=== PATIENT | female | born 1945 | race Caucasian/White ===

== ENCOUNTER 2021-02-10 23:53 | Emergency (ER) | payer MEDICARE, SELFPAY ==
[2021-02-10 23:56] VITALS: BP 170/77; PULSE 74; RESP 16; TEMP 36.7; O2SAT 97; BMI 32.4
--- NOTE | 2021-02-11 00:15 | XR_ITS ---
PROCEDURE INFORMATION: Exam: XR Pelvis Exam date and time: 02/11/2021 12:15 AM Age: 75 years old Clinical indication: Injury or trauma; Fall; Blunt trauma (contusions or hematomas); Bilateral; Pelvic region TECHNIQUE: Imaging protocol: XR pelvis. Views: 1 or 2 view. COMPARISON: No relevant prior studies available. FINDINGS: Bones/joints: Osteopenia. No acute displaced fracture. Minimal degenerative spurring of the bilateral hips. Mild bilateral SI joint osteoarthrosis. Partially imaged lower lumbar spondylosis. Soft tissues: Unremarkable. IMPRESSION: No acute displaced fracture.
--- NOTE | 2021-02-11 00:15 | XR_ITS ---
PROCEDURE INFORMATION: Exam: XR Left Shoulder Exam date and time: 02/11/2021 12:15 AM Age: 75 years old Clinical indication: Injury or trauma; Blunt trauma (contusions or hematomas); Patient HX: Left shoulder pain after fall TECHNIQUE: Imaging protocol: XR Left shoulder. Views: 2 or more views. COMPARISON: No relevant prior studies available. FINDINGS: Bones/joints: No acute fracture. No dislocation. Moderate AC joint osteoarthrosis. Mild glenohumeral joint degenerative change. Soft tissues: Normal. IMPRESSION: No acute fracture or dislocation.
--- NOTE | 2021-02-11 00:15 | CT_ITS ---
PROCEDURE INFORMATION: Exam: CT Head Without Contrast Exam date and time: 02/11/2021 12:15 AM Age: 75 years old Clinical indication: Injury or trauma; Fall; Blunt trauma (contusions or hematomas); Consciousness not specified; Patient HX: Fell and hit head, unknown loc TECHNIQUE: Imaging protocol: Computed tomography of the head without contrast. Radiation optimization: All CT scans at this facility use at least one of these dose optimization techniques: automated exposure control; mA and/or kV adjustment per patient size (includes targeted exams where dose is matched to clinical indication); or iterative reconstruction. COMPARISON: No relevant prior studies available. FINDINGS: Brain: Generalized brain volume loss. Urzg-xn-[id number] patchy periventricular and subcortical white matter low attenuation is nonspecific, but most likely related to chronic small vessel ischemia. No acute-appearing loss of mcgraw-white differentiation or CT evidence of large territorial acute ischemia. No intraparenchymal hematoma. No mass effect or midline shift. Extra-axial space: Unremarkable. No fluid collection or mass. Cerebral ventricles: Within expected limits for age. No ventricular outflow obstruction. Paranasal sinuses: Mild nonaggressive mucosal thickening of the ethmoid sinuses. Mastoid air cells: Visualized mastoid air cells are well aerated. Vasculature: The scattered cerebrovascular calcifications. Bones/joints: No depressed or calvarial fracture. Soft tissues: Unremarkable. IMPRESSION: 1. No acute intracranial abnormality. 2. Global senescent change. 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
--- NOTE | 2021-02-11 00:15 | CT_ITS ---
PROCEDURE INFORMATION: Exam: CT Cervical Spine Without Contrast Exam date and time: 02/11/2021 12:15 AM Age: 75 years old Clinical indication: Injury or trauma; Fall; Blunt trauma TECHNIQUE: Imaging protocol: Computed tomography images of the cervical spine without contrast. Radiation optimization: All CT scans at this facility use at least one of these dose optimization techniques: automated exposure control; mA and/or kV adjustment per patient size (includes targeted exams where dose is matched to clinical indication); or iterative reconstruction. COMPARISON: CR XR CHEST 2V 02/11/2021 12:23 AM FINDINGS: Bones/joints: Nonspecific straightening of the normal cervical lordosis. There is minimal grade 1 anterolisthesis of C3 on C4 and T1 on T2, favored to be chronic/degenerative in nature. No uncovering of facet joints. Discs/Spinal canal/Neural foramina: Diminutive cervical ribs are present at the C7 vertebral body. There is ankylosis of the C7-T1 intervertebral disc space and posterior elements. Moderate disc height loss at C5-C6, with xsxj-ab-dijylmrd disc height loss noted at C3-C4 and C4-C5. Scattered uncovertebral spurring, greatest at C5-C6. Moderate to advanced multilevel facet osteoarthropathy, with facet joint ankylosis noted at C2-C3 as well as C7-T1. Mild multilevel spinal canal stenosis suggested due to disc bulging/protrusions. Gxuj-ne-rouqakch right neural foraminal narrowing at C5-C6. Otherwise scattered minimal to mild neural foraminal stenosis. Lungs: Emphysema and scarring at the bilateral lung apices. Soft tissues: Unremarkable. IMPRESSION: 1. No acute cervical spine fracture. 2. Nonspecific straightening of the normal cervical lordosis. Minimal grade 1 anterolisthesis at C3-C4 and T1-T2, favored to be chronic/degenerative. 3. Diminutive cervical ribs at C7. Degenerative changes as above.
--- NOTE | 2021-02-11 00:15 | XR_ITS ---
PROCEDURE INFORMATION: Exam: XR Chest Exam date and time: 02/11/2021 12:15 AM Age: 75 years old Clinical indication: Injury or trauma; Fall; Blunt trauma (contusions or hematomas) TECHNIQUE: Imaging protocol: XR of the chest. Views: 2 views. COMPARISON: No relevant prior studies available. FINDINGS: Lungs: Unremarkable. No consolidation. Pleural spaces: No pleural effusion. No pneumothorax. Heart/Mediastinum: Normal heart size. Mildly tortuous thoracic aorta with atherosclerotic calcifications. Bones/joints: Osteopenia. No acute displaced fracture. Mild thoracic spondylosis. IMPRESSION: No acute finding.
--- NOTE | 2021-02-11 00:50 | [facility].EDFALL ---
ED Disposition Clinical Impression: Concussion without loss of consciousness Qualifiers: Encounter type: initial encounter Qualified Code(s): S06.0X0A - Concussion without loss of consciousness, initial encounter Acute cervical sprain Qualifiers: Encounter type: initial encounter Qualified Code(s): S13.9XXA - Sprain of joints and ligaments of unspecified parts of neck, initial encounter Acute lumbar myofascial strain Qualifiers: Encounter type: initial encounter Qualified Code(s): S39.012A - Strain of muscle, fascia and tendon of lower back, initial encounter Shoulder sprain Qualifiers: Encounter type: initial encounter Shoulder sprain type: unspecified sprain Laterality: left Qualified Code(s): S43.402A - Unspecified sprain of left shoulder joint, initial encounter Fall Qualifiers: Encounter type: initial encounter Qualified Code(s): W19.XXXA - Unspecified fall, initial encounter Disposition: Home, Self-Care Condition on Discharge: Good Instructions: DI for Concussion Referrals: Provider,Referral, MD [Primary Care Provider] - - Critical Care Critical Care Time: No Attestation: On 02/10/21, the high probability of a clinically significant, sudden or life threatening deterioration of the following system(s) required my full and direct attention, intervention and personal management. The time I documented below is in addition to time spent performing reported procedures but includes the following listed in this critical care notation. Medical Decision Making - Medical Records Medical records reviewed: Yes: I reviewed the patient's medical records. - [facility] Inquiry Pt receiving controlled substance: No Vital Signs: 02/10/21 23:56 02/11/21 01:12 02/11/21 01:51 Temperature 98.1 F Temperature Source Oral Pulse Rate 72 73 Pulse Rate [Right] 74 Respiratory Rate 16 Blood Pressure 153/60 H 152/63 H Blood Pressure [Right Radial Artery] 170/77 H Blood Pressure Mean 95 Blood Pressure Mean [Right Radial Artery] 108 02 Sat by Pulse Oximetry 97 97 96 - Lab Data Lab results reviewed: Yes: I reviewed the patient's lab results. - Radiology Data #1 Image(s): Chest, Shoulder, Pelvis Image Reviewed: Yes I have reviewed radiologist's interpretation Preliminary Findings: No Fracture Seen - CT Data CT Scan: Head, C-Spine, L-Spine Time Received: 02:[address] Reviewed: Yes: I have viewed the radiologist's interpretation Preliminary Findings: No Fracture Seen Medical Decision Narrative: fall but no acute fx seen Fall HPI - General Chief Complaint: Fall Stated Complaint: [id number] hit head,shoulder Time Seen by Provider: 02/11/21 00:15 Mode of Arrival: Wheelchair Source of Information: Patient, Medical Record Limitations: No Limitations Description of Symptoms (Recalled from ER Triage Doc. by RN): pt states was walking and trip over feet and fell hitting head,and lt shoulder. pt c/o head, lt shoulder, and lower back pain - History of Present Illness HPI Narrative: tripped and fell with back and neck and lt shoulder pain MD complaint: fall Onset (ago): hour(s) Fall from: walking Fall witnessed: yes, by family Place fall occurred: other (b/b) Loss of consciousness: none Prolonged down time: no Context: tripped/slipped Location of injury: head, neck, back Location of injury - extremities: Left: shoulder Severity: moderate Associated symptoms (after fall): headache, neck pain - Related Data Home Medications Medication Instructions Recorded Confirmed No Known Home Medications 02/11/21 02/11/21 Allergies Allergy/AdvReac Type Severity Reaction Status Date / Time Penicillins Allergy Verified 02/11/21 00:15 [facility] History - Hepatitis A Screen Drug use history?: No High risk sexual behaviors?: No History of sexually transmitted infection?: No Currently employed?: No Childcare worker?: No Do you have indoor plumbing?: Yes Do you have electricity?: Yes At
[2021-02-11 01:12] VITALS: BP 153/60; PULSE 72; O2SAT 97
--- NOTE | 2021-02-11 01:19 | XR_ITS ---
PROCEDURE INFORMATION: Exam: XR Lumbosacral Spine Exam date and time: 02/11/2021 1:19 AM Age: 75 years old Clinical indication: Injury or trauma; Blunt trauma (contusions or hematomas); Patient HX: Fall, low back pain TECHNIQUE: Imaging protocol: XR of the lumbosacral spine. Views: 2 or 3 views. COMPARISON: CR XR PELVIS 1-2V 02/11/2021 12:30 AM FINDINGS: Bones/joints: Osteopenia. Lumbar vertebral body heights are maintained. No evidence of acute fracture. There is grade 1 anterolisthesis of L4 on L5, likely degenerative in nature. Dwax-zp-hydeanxg disc height loss at L4-L5. Otherwise mild degenerative disc disease. Multilevel facet arthropathy, greatest distally. Soft tissues: Unremarkable. Gastrointestinal tract: Colonic stool burden. Vasculature: Aortic atherosclerosis. IMPRESSION: 1. No evidence of acute fracture. 2. Grade 1 anterolisthesis of L4 on L5, likely degenerative. 3. Spondylosis.
[2021-02-11 01:51] VITALS: BP 152/63; PULSE 73; O2SAT 96
[2021-02-11 02:06] VITALS: BP 150/66; PULSE 70; RESP 16; TEMP 36.8; O2SAT 98
== END 2021-02-11 02:44 | disposition home or self-care (01) ==
PROVIDERS: Emergency Provider Emergency Medicine
DX: S06.0X0A Concussion without loss of consciousness, initial encounter (principal); S13.9XXA Sprain of joints and ligaments of unspecified parts of neck, initial encounter; S39.012A Strain of muscle, fascia and tendon of lower back, initial encounter; S43.402A Unspecified sprain of left shoulder joint, initial encounter; W01.0XXA Fall on same level from slipping, tripping and stumbling without subsequent striking against object, initial encounter; Y93.01 Activity, walking, marching and hiking; Y92.89 Other specified places as the place of occurrence of the external cause
CPT/HCPCS: 70450; 71046; 72100; 72125; 72170; 73030; 99282